=== PATIENT | male | born 1980 | race Caucasian/White ===

== ENCOUNTER 2024-09-29 11:17 | Inpatient (IN) | payer SELFPAY ==
[2024-09-29] VITALS (12 sets, daily range): BP systolic 117–150; BP diastolic 66–99; PULSE 56–93; RESP 12–18; TEMP 36.1–37.8; O2SAT 94–100; BMI 30.1; BMI 31.1
--- NOTE | 2024-09-29 | CYSPIN_PTH ---
PATIENT: АНДРЕЙ THOMPSON LOC: MS3 U#:[id number] AGE/SX: 44/M ROOM: MA311 RE09/29/[address]: Dr. Bib Varela DO : 1980 BED: 1 DIS: 10/01/2024 SPEC #: [id number] RECD: 09/30/24 09:35 STATUS: HOMER REUday #: [id number] ALBERTO: 09/29/24 00:[address]: Vishal Pascual DEPT: CYTOLOGY RECD BY: Oscar Guzmán ENTERED: 09/30/24 09:36 SP TYPE: CYSPIN FL OTHR DR: DO Dr. Bib Thomas DO Dr. Robert Leininger, MD No Primary Care Phys Tissues: A - Cerebrospinal Fluid Procedures: Pap Stain (control) Special Stain Group II Cytospin Fluid HEADER OPERATION: Not noted PRE-OP DIAGNOSIS: Meningitis, unspecified TISSUE SUBMITTED: A- Cerebrospinal fluid for cytology DIAGNOSIS CYTOLOGY A. Cerebrospinal fluid: * No malignant cells are identified CYTOLOGY STUDY Slides are reviewed. CYTOLOGY GROSS A. Received is 0.5 ml of clear-colorless fluid labeled with the patient's name and and designated per the requisition as Cerebrospinal fluid. Submitted for cytology and cell block preparation. Mr 09/30/2024 CPT: 24881
--- NOTE | 2024-09-29 13:41 | CT_ITS ---
PROCEDURE: BRAIN/HEAD WITHOUT CONTRAST 09/29/2024 REASON FOR EXAM: HEADACHE TECHNIQUE: Head CT without intravenous contrast. Coronal and Sagittal reconstruction series were provided. One or more dose reduction techniques were used (e.g., Automated exposure control, adjustment of the mA and/or kV according to patient size, use of iterative reconstruction technique. RADIATION DOSE SUMMARY: CTDlvol: 47.06 mGy DLP: 907.97 mGycm COMPARISON: None. FINDINGS: Brain: Within normal limits for age CSF Spaces: Normal Sinuses/Mastoids: Mild bilateral ethmoid sinus mucosal thickening is seen. Ksux-[id number] left maxillary sinus mucosal thickening is noted. No air-fluid level is seen. The remaining paranasal sinuses appear clear, as do the mastoid air cells. No orbital pathology is noted. Bones: No acute process is seen. CT/Brain/Head without Contrast IMPRESSION: 1. Chronic appearing paranasal sinus disease. 2. No significant intracranial pathology is evident. Reading Location: [place] [address]
--- NOTE | 2024-09-29 13:41 | RAD_ITS ---
PROCEDURE: CHEST 1 VIEW (PORTABLE) 09/29/2024 REASON FOR EXAM: COUGH AND FEVER TECHNIQUE: Frontal view of the chest. COMPARISON: None. RAD/Chest 1 View (Portable) IMPRESSION: Lungs are hypoinflated, but are likely clear of acute disease. No evidence of pulmonary edema. No pleural effusion or pneumothorax is noted. The cardiomediastinal silhouette is within the normal range. No acute osseous process is seen. Reading Location: [place] [id number]
--- NOTE | 2024-09-29 13:43 | EDS_ITS ---
HPI <Dr. Vishal Pascual DO - Last Filed: 09/29/24 13:57> History of Present Illness Chief Complaint: General Illness Informant: patient and spouse/S.O. Narrative Narrative: 44-year-old male presenting to the emergency room with chief complaint of headache. Patient states on Friday he had a gradual onset of headache described as behind his eyes and the temples in his occiput and also by his ears. He notes that also occurring Friday and Friday was nasal congestion and a slight cough. states that last night he had 103 fever and she gave Tylenol. It was 99 this morning. Friday he had a dental extraction on the right side. He was prescribed antibiotics but did not start taking them. He notes some light sensitivity. States his neck feels stiff. He is able to move his neck from [id number] and up and down. He denies any rashes. He did an episode of vomiting this morning. He notes that he is not treated for any medical problems. He takes no medicines regularly has no allergies. He does not typically get headaches. PFSH <Dr. Vishal Pascual DO - Last Filed: 09/29/24 13:57> [facility] Home Medications ?Medication ?Instructions ?Recorded ?Last Taken ?Type amoxicillin 875 mg tablet 875 mg PO Q12.TCU 09/29/24 U nknown History ibuprofen 800 mg tablet 800 mg PO Q6H PRN PRN pain 0 09/29/24 Unknown History Allergy/AdvReac Type Severity Reaction Status Date / Time No Known Allergies Allergy Verified 09/29/24 11:20 Surgical History H/O tooth extraction Social History Smoking Status: Never smoker ROS <Dr. Vishal Pascual DO - Last Filed: 09/29/24 13:57> ROS ED Constitutional Constitutional ED: Reports fever(s); Denies chills or weight loss Eyes Eyes: Denies change in vision or diplopia ENT ENT ED: Reports rhinorrhea; Denies ear pain or sore throat Cardiovascular Cardiovascular: Denies chest pain, orthopnea, palpitations or racing heartbeat Respiratory/Chest Respiratory/Chest: Reports cough; Denies dyspnea or orthopnea Gastrointestinal Gastrointestinal: Reports nausea and vomiting; Denies abdominal pain or diarrhea Genitourinary Genitourinary ED: Denies dysuria, hematuria or urinary frequency Musculoskeletal Musculoskeletal: Reports neck pain; Denies arthralgias or myalgias Integumentary Denies abscess or rash Neurologic Neurologic: Reports headache(s); Denies paresthesias or weakness Psychiatric Psychiatric: Denies anxiety, depression, suicidal ideation or suicidal thoughts Endocrine Endocrinology: Denies polydipsia, polyphagia or polyuria Allergic/Immunologic Allergic/Immunologic ED: Denies mouth swelling, tongue swelling or urticaria EXAM <Dr. Vishal Pascual, DO - Last Filed: 09/29/24 13:57> Physical Exam Narrative Exam Narrative: Patient lying in a darkened room. He appears uncomfortable shifting his weight and moving his head from [id number] occasionally extending backwards and forwards. Const Vital Signs: 09/29/24 11:18 09/29/24 11:20 09/29/24 12:32 Temperature 97.6 F L 97.6 F L 98 F Temperature Source Oral Temporal Oral Pulse Rate 89 89 78 Respiratory Rate 16 16 15 Respiratory Effort Respiratory Pattern Blood Pressure 149/90 H 149/90 H 124/70 H Blood Pressure Mean 109 109 88 Pulse Ox 100 100 97 Oxygen Delivery Method Room Air Room Air Room Air 09/29/24 12:32 09/29/24 13:20 09/29/24 15:00 Temperature Temperature Source Pulse Rate 74 73 Respiratory Rate 16 16 Respiratory Effort Normal Respiratory Pattern Normal Blood Pressure 138/86 H 132/75 H Blood Pressure Mean 103 94 Pulse Ox 97 96 Oxygen Delivery Method Room Air Room Air 09/29/24 15:53 09/29/24 16:24 09/29/24 18:00 Temperature 99.9 F H Temperature Source Axillary Pulse Rate 71 65 56 L Respiratory Rate 13 12 14 Respiratory Effort Respiratory Pattern Blood Pressure 127/68 H 117/66 136/85 H Blood Pressure Mean 87 83 102 Pulse Ox 95 95 99 Oxygen Delivery Method Room Air Room Air Room Air 09/29/24 19:39 Temperature 100.1 F H Temperature Source Pulse Rate 69 Respiratory Rate 16 Respiratory Effort Respiratory Pattern Blood Pressure 137/81 H Blood Pressure Mean 99 Pulse Ox 99 Oxygen Delivery Method Positive well nourished and well developed General Appearance ED: well developed and NAD HEENT Reports normocephalic, head/scalp atraumatic and moist mucous membranes HEENT Narrative: Dental extraction site does not demonstrate a dry socket. There is no trismus. No significant gumline swelling. Eyes PERRL and EOMs intact bilaterally Neck supple and no JVD Neck Narrative: There are numerous anterior change lymph nodes that are less than 1 cm and mobile. I would not characterize his neck as rigid or meningitic though he does note discomfort with range of motion. Resp normal respiratory effort and clear to auscultation bilaterally Cardio regular rate, regular rhythm and no murmurs GI normal to inspection, nondistended, normoactive bowel sounds and non-tender Palpation: soft Back/Spine no CVA tenderness and normal ROM Extremity normal to inspection General Extremety ED: Negative for edema General Extremity: Negative for edema Neuro oriented x3 and CN's II-XII intact bilaterally Sensorium / Orientation: alert Motor Exam: strength 5/5 throughout Psych mental status grossly normal Mood & Affect: Negative for depressed or tearful Skin no rashes or lesions noted and no wounds <Dr. Jeff Zepeda, DO - Last Filed: 09/29/24 19:49> Physical Exam Const Vital Signs: 09/29/24 11:18 09/29/24 11:20 09/29/24 12:32 Temperature 97.6 F L 97.6 F L 98 F Temperature Source Oral Temporal Oral Pulse Rate 89 89 78 Respiratory Rate 16 16 15 Respiratory Effort Respiratory Pattern Blood Pressure 149/90 H 149/90 H 124/70 H Blood Pressure Mean 109 109 88 Pulse Ox 100 100 97 Oxygen Delivery Method Room Air Room Air Room Air 09/29/24 12:32 09/29/24 13:20 09/29/24 15:00 Temperature Temperature Source Pulse Rate 74 73 Respiratory Rate 16 16 Respiratory Effort Normal Respiratory Pattern Normal Blood Pressure 138/86 H 132/75 H Blood Pressure Mean 103 94 Pulse Ox 97 96 Oxygen Delivery Method Room Air Room Air 09/29/24 15:53 09/29/24 16:24 09/29/24 18:00 Temperature 99.9 F H Temperature Source Axillary Pulse Rate 71 65 56 L Respiratory Rate 13 12 14 Respiratory Effort Respiratory Pattern Blood Pressure 127/68 H 117/66 136/85 H Blood Pressure Mean 87 83 102 Pulse Ox 95 95 99 Oxygen Delivery Method Room Air Room Air Room Air 09/29/24 19:39 Temperature 100.1 F H Temperature Source Pulse Rate 69 Respiratory Rate 16 Respiratory Effort Respiratory Pattern Blood Pressure 137/81 H Blood Pressure Mean 99 Pulse Ox 99 Oxygen Delivery Method [facility] <Dr. Vishal Pascual, DO - Last Filed: 09/29/24 13:57> [facility] Lab Data Labs: Laboratory Results - last 24 hr 09/29/24 09/29/24 13:58 16:15 WBC 8.5 RBC 4.53 L Hgb 13.6 Hct 39.0 L MCV 86.1 MCH 30.0 MCHC 34.9 RDW Std Deviation 37.1 RDW Coeff of Alonso 11.8 Plt Count 253 MPV 9.8 Immature Gran % (Auto) 0.400 Neut % (Auto) 73.7 H Lymph % (Auto) 14.4 L Bailey % (Auto) 10.9 H Eos % (Auto) 0.1 Baso % (Auto) 0.5 Absolute Neuts (auto) 6.2 Absolute Lymphs (auto) 1.22 Nucleated RBC % 0 PT 13.3 INR 1.0 APTT 27.3 Sodium 134 Potassium 3.9 Chloride 100 Carbon Dioxide 23.0 Anion Gap 11 BUN 9 Creatinine 1.01 Estim Creat Clear Calc 120.46 Est GFR (MDRD) Non-Af 95 BUN/Creatinine Ratio 8.8 L Glucose 98 Lactic Acid < 1.0 Calcium 9.4 Total Bilirubin 0.67 Direct Bilirubin 0.24 AST 23 ALT 13 Alkaline Phosphatase 81 Total Protein 8.0 Albumin 4.0 Globulin 3.9 CSF Appearance CLEAR CSF Color COLORLESS CSF WBC 55 H CSF RBC 73 H CSF Cell Count Tube # 1 CSF Total Cell Counted 0.092 CSF Neutrophils 61 H CSF Lymphocytes 37 L CSF Monocytes 2 L CSF Eosinophils 0 CSF Other Cells 0 CSF Comment May follow CSF Glucose 55 CSF Total Protein 116.0 H
--- NOTE | 2024-09-29 13:43 | EX.ED.DYSGE1 ---
HPI <Dr. Vishal Pascual DO - Last Filed: 09/30/24 14:57> History of Present Illness Chief Complaint: General Illness Informant: patient and spouse/S.O. Narrative Narrative: 44-year-old male presenting to the emergency room with chief complaint of headache. Patient states on Friday he had a gradual onset of headache described as behind his eyes and the temples in his occiput and also by his ears. He notes that also occurring Friday and Friday was nasal congestion and a slight cough. states that last night he had 103 fever and she gave Tylenol. It was 99 this morning. Friday he had a dental extraction on the right side. He was prescribed antibiotics but did not start taking them. He notes some light sensitivity. States his neck feels stiff. He is able to move his neck from [id number] and up and down. He denies any rashes. He did an episode of vomiting this morning. He notes that he is not treated for any medical problems. He takes no medicines regularly has no allergies. He does not typically get headaches. PFSH <Dr. Vishal Pascual DO - Last Filed: 09/30/24 14:57> [facility] Home Medications ?Medication ?Instructions ?Recorded ?Last Taken ?Type amoxicillin 875 mg tablet 875 mg PO Q12.TCU atb 09/29/24 Unknown History ibuprofen 800 mg tablet 800 mg PO Q6H PRN PRN pain 09/29/24 Unknown History Allergy/AdvReac Type Severity Reaction Status Date / Time No Known Allergies Allergy Verified 09/29/24 11:20 Surgical History H/O tooth extraction Social History Smoking Status: Never smoker ROS <Dr. Vishal Pascual DO - Last Filed: 09/30/24 14:57> ROS ED Constitutional Constitutional ED: Reports fever(s); Denies chills or weight loss Eyes Eyes: Denies change in vision or diplopia ENT ENT ED: Reports rhinorrhea; Denies ear pain or sore throat Cardiovascular Cardiovascular: Denies chest pain, orthopnea, palpitations or racing heartbeat Respiratory/Chest Respiratory/Chest: Reports cough; Denies dyspnea or orthopnea Gastrointestinal Gastrointestinal: Reports nausea and vomiting; Denies abdominal pain or diarrhea Genitourinary Genitourinary ED: Denies dysuria, hematuria or urinary frequency Musculoskeletal Musculoskeletal: Reports neck pain; Denies arthralgias or myalgias Integumentary Denies abscess or rash Neurologic Neurologic: Reports headache(s); Denies paresthesias or weakness Psychiatric Psychiatric: Denies anxiety, depression, suicidal ideation or suicidal thoughts Endocrine Endocrinology: Denies polydipsia, polyphagia or polyuria Allergic/Immunologic Allergic/Immunologic ED: Denies mouth swelling, tongue swelling or urticaria EXAM <Dr. Vishal Pascual, DO - Last Filed: 09/30/24 14:57> Physical Exam Narrative Exam Narrative: Patient lying in a darkened room. He appears uncomfortable shifting his weight and moving his head from [id number]-fi-kutu occasionally extending backwards and forwards. Const Vital Signs: 09/29/24 15:00 09/29/24 15:53 09/29/24 16:24 Temperature Temperature Source Pulse Rate 73 71 65 Respiratory Rate 16 13 12 Blood Pressure 132/75 H 127/68 H 117/66 Blood Pressure Mean 94 87 83 Pulse Ox 96 95 95 Oxygen Delivery Method Room Air Room Air Room Air 09/29/24 18:00 09/29/24 19:39 09/29/24 20:00 Temperature 99.9 F H 100.1 F H Temperature Source Axillary Pulse Rate 56 L 69 93 Respiratory Rate 14 16 16 Blood Pressure 136/85 H 137/81 H 146/99 H Blood Pressure Mean 102 99 114 Pulse Ox 99 99 94 Oxygen Delivery Method Room Air Room Air Positive well nourished and well developed General Appearance ED: well developed and NAD HEENT Reports normocephalic, head/scalp atraumatic and moist mucous membranes HEENT Narrative: Dental extraction site does not demonstrate a dry socket. There is no trismus. No significant gumline swelling. Eyes PERRL and EOMs intact bilaterally Neck supple and no JVD Neck Narrative: There are numerous anterior change lymph nodes that are less than 1 cm and mobile. I would not characterize his neck as rigid or meningitic though he does note discomfort with range of motion. Resp normal respiratory effort and clear to auscultation bilaterally Cardio regular rate, regular rhythm and no murmurs GI normal to inspection, nondistended, normoactive bowel sounds and non-tender Palpation: soft Back/Spine no CVA tenderness and normal ROM Extremity normal to inspection General Extremety ED: Negative for edema General Extremity: Negative for edema Neuro oriented x3 and CN's II-XII intact bilaterally Sensorium / Orientation: alert Motor Exam: strength 5/5 throughout Psych mental status grossly normal Mood & Affect: Negative for depressed or tearful Skin no rashes or lesions noted and no wounds <Dr. Jeff Zepeda, DO - Last Filed: 09/29/24 19:49> Physical Exam Const Vital Signs: 09/29/24 15:00 09/29/24 15:53 09/29/24 16:24 Temperature Temperature Source Pulse Rate 73 71 65 Respiratory Rate 16 13 12 Blood Pressure 132/75 H 127/68 H 117/66 Blood Pressure Mean 94 87 83 Pulse Ox 96 95 95 Oxygen Delivery Method Room Air Room Air Room Air 09/29/24 18:00 09/29/24 19:39 09/29/24 20:00 Temperature 99.9 F H 100.1 F H Temperature Source Axillary Pulse Rate 56 L 69 93 Respiratory Rate 14 16 16 Blood Pressure 136/85 H 137/81 H 146/99 H Blood Pressure Mean 102 99 114 Pulse Ox 99 99 94 Oxygen Delivery Method Room Air Room Air MDM <Dr. Vishal Pascual, DO - Last Filed: 09/30/24 14:57> [facility] Narrative Medical decision making narrative: Differential diagnosis includes viral syndrome bacterial viral fungal meningitis malignancy intracranial hemorrhage primary headache dehydration. CT brain was obtained and is negative for acute. White count is normal. Lactic acid is normal. BMP liver enzymes within normal limits. COVID influenza and RSV swabs are negative. My independent interpretation of the chest x-ray is no acute process. Patient received IV fluids as well as Toradol. After the above workup the patient received Dilaudid with some improvement of headache. I spoke with the patient and his regarding the above findings and my concerns for meningitis. He has not had any recent insect bites or rashes. Patient provided informed written consent for lumbar puncture. Patient placed in the left lateral position. L5 interspace was identified washed with Betadine and allowed to dry. Sterile prep. Local 1% lidocaine used to anesthetize the area. I then advanced through the needle between the spinous processes. Once I felt a pop remove the stylette and cut a small amount of blood. Attempted to advance. This attempt was aborted in the needle was removed. I asked my associate Dr. Rivas to assist. We agreed to utilize the L4-L5 interspace. He was successful in the first attempt with a 22-gauge needle using the above technique. Opening pressure obtained fluid collected about 7 cc of clear spinal fluid obtained. These will be sent for analysis. At this point care the patient be turned over to the oncoming physician for check of CSF analysis and final disposition. Care of patient turned over to me awaiting results of spinal fluid. He was noted to have 55 WBCs with 61% neutrophils. Protein was high and glucose was normal. Gram stain was negative for organisms. Reevaluated the patient and he is continuing to feel significant headache. I did start patient on Rocephin 2 g IV as well as acyclovir. Will have to await results of culture and viral panels. Some concern for bacterial meningitis based on CSF findings but more likely I suspect this is viral. After discussing case with hospitalist I was asked to touch base with infectious disease Dr. Nuno who did not feel patient required steroids. Based on findings suspect likely viral etiology. History & Record Review Discussion w/independent historian: Patient and Significant other Lab Data Labs: Laboratory Results - last 24 hr 09/29/24 09/29/24 13:58 16:15 Magnesium 2.0 TSH 0.489 CSF Appearance CLEAR CSF Color COLORLESS CSF WBC 55 H CSF RBC 73 H CSF Cell Count Tube # 1 CSF Total Cell Counted 0.092 CSF Neutrophils 61 H CSF Lymphocytes 37 L CSF Monocytes 2 L CSF Eosinophils 0 CSF Other Cells 0 CSF Comment May follow CSF Glucose 55 CSF Total Protein 116.0 H Radiography Diagnostic Testing: Clinical Impression(s) from Imaging Studies Brain CT 09/29/24 13:41 IMPRESSION: 1. Chronic appearing paranasal sinus disease. 2. No significant intracranial pathology is evident. Reading Location: [place] [address] Chest X-Ray 09/29/24 13:41 IMPRESSION: Lungs are hypoinflated, but are likely clear of acute disease. No evidence of pulmonary edema. No pleural effusion or pneumothorax is noted. The cardiomediastinal silhouette is within the normal range. No acute osseous process is seen. Reading Location: [place] [address] Management Discussion w/another healthcare provider: Hospitalist and Database Technician <Dr. Jeff Zepeda, DO - Last Filed: 09/29/24 19:49> [facility] MDM Narrative Medical decision making narrative: Care of patient turned over to me awaiting results of spinal fluid. He was noted to have 55 WBCs with 61% neutrophils. Protein was high and glucose was normal. Gram stain was negative for organisms. Reevaluated the patient and he is continuing to feel significant headache. I did start patient on Rocephin 2 g IV as well as acyclovir. Will have to await results of culture and viral panels. Some concern for bacterial meningitis based on CSF findings but more likely I suspect this is viral. After discussing case with hospitalist I was asked to touch base with infectious disease Dr. Nuno who did not feel patient required steroids. Based on findings suspect likely viral etiology. Lab Data Attestation: I reviewed the patient's lab results. Labs: Laboratory Results - last 24 hr 09/29/24 09/29/24 13:58 16:15 Magnesium 2.0 TSH 0.489 CSF Appearance CLEAR CSF Color COLORLESS CSF WBC 55 H CSF RBC 73 H CSF Cell Count Tube # 1 CSF Total Cell Counted 0.092 CSF Neutrophils 61 H CSF Lymphocytes 37 L CSF Monocytes 2 L CSF Eosinophils 0 CSF Other Cells 0 CSF Comment May follow CSF Glucose 55 CSF Total Protein 116.0 H Radiography Diagnostic Testing: Clinical Impression(s) from Imaging Studies Brain CT 09/29/24 13:41 IMPRESSION: 1. Chronic appearing paranasal sinus disease. 2. No significant intracranial pathology is evident. Reading Location: [place] [address] Chest X-Ray 09/29/24 13:41 IMPRESSION: Lungs are hypoinflated, but are likely clear of acute disease. No evidence of pulmonary edema. No pleural effusion or pneumothorax is noted. The cardiomediastinal silhouette is within the normal range. No acute osseous process is seen. Reading Location: [place] [address] Procedures <Dr. Vishal Pascual, DO - Last Filed: 09/30/24 14:57> Lumbar Puncture Consent/Risks: Consent for procedure obtained and Risks/Benefits/Alternatives Discussed Lumbar Puncture Description: Left, Lateral, Sterile Prep, Betadine Prep, Sterile Technique and L4-5 Spinal Needle: 22G Sedation: None Opening Pressure: 30 Fluid Color: Clear Discharge Plan Dx/Rx/DC Orders Clinical Impression: Meningitis Disposition Disposition: Acute Care Hospital [facility] Discharge Date/Time: 09/29/24 20:44
[2024-09-29] MEDS: 0.9% Normal Saline (1000mL) 1,000 ML 1000 ML IV (14:04)
[2024-09-29] MEDS: Ketorolac 30 MG/ML Syringe IV (14:05)
[2024-09-29] MEDS: Ondansetron 4 MG/2 ML Vial IV ×3 (14:05→22:06)
[2024-09-29 14:17] LABS: Absolute Lymphocyte Count 1.22 X10^3/uL (0.83-4.51); Absolute Neutrophil Count 6.2 X10^3/uL (2.0-7.7); Basophil# 0.04 X10^3/uL; Basophil% 0.5 % (0-1); Eosinophil# 0.01 X10^3/uL; Eosinophils% 0.1 % (0-5); Hemoglobin 13.6 g/dL (13.0-16.5); Lymphocyte # 1.22 X10^3/ul (0.83-4.51); Lymphocyte % 14.4 % (19-41); Mean Corp Hgb Conc 34.9 g/dL (32-36); Mean Corpuscular Volume 86.1 fL (80-94); Mean Platelet Vol. 9.8 fl (6.2-12.0); Monocyte# 0.92 X10^3/uL; Monocyte% 10.9 % (0-10); NRBC Flagged by Analyzer 0 % (0-5); Neutrophil # 6.24 X10^3/uL (2.7-7.7); Neutrophil % 73.7 % (47-70); Platelet Count 253 K/mm3 (150-450); RBC Distribution Width CV 11.8 % (11.6-14.6); RBC Distribution Width SD 37.1 fl (35.1-43.9); Red Blood Count 4.53 M/mm3 (4.6-6.2); White Blood Count 8.5 K/mm3 (4.4-11.0)
[2024-09-29 14:22] LABS: Prothrombin Time (Protime)PT. 13.3 SECONDS (11.7-14.9)
[2024-09-29 14:23] LABS: Partial Thromboplast Time 27.3 Seconds (24.1-36.2)
[2024-09-29] MEDS: 0.9% Normal Saline (1000mL) 1,000 ML 250 ML IV ×2 (14:29→19:04)
[2024-09-29 14:41] LABS: AST(SGOT) 23 U/L (<=37); Alanine Aminotransfer ALT/SGPT 13 U/L (<=46); Alkaline Phosphatase 81 U/L (40-129); Anion Gap 11 (5-15); BUN 9 mg/dL (4-19); BUN/Creat Ratio 8.8 RATIO (10-20); Bilirubin, Direct 0.24 mg/dL (0.00-0.30); Calcium,Total 9.4 mg/dL (7.6-11.0); Chloride 100 mmol/L (98-108); Creatinine, Serum 1.01 mg/dL (0.70-1.20); EST Glomerular Filtration Rate 95 (>60); Estimated Creatinine Clearance 120.46 ml/min (50-250); Globulin 3.9 g/dL (2.2-4.2); Glucose 98 mg/dL (70-99); Potassium 3.9 mmol/L (3.3-5.1); Sodium Level 134 mmol/L (133-145); Total Bilirubin 0.67 mg/dL (0.00-1.30)
[2024-09-29 14:52] LABS: Lactic Acid < 1.0 mmol/L (0.0-2.0)
[2024-09-29] MEDS: HYDROmorphone 1 MG/ML Syringe IV (15:29)
[2024-09-29] MEDS: Lidocaine 1% (20 ml mdv) 20 ML Vial 10 ML INFILT (16:27)
[2024-09-29 16:28] LABS: Cytology, Body Fluid / CSF SEE PATHOLOGY REPORT; Pathologist Review May follow
[2024-09-29 17:12] LABS: Glucose Spinal Fluid 55 mg/dL (40-75)
[2024-09-29 19:03] LABS: Appearance CSF (character) CLEAR (Clear); CSF Color COLORLESS (Colorless)
[2024-09-29 19:04] LABS: RBC Count, Spinal Fluid 73 /mm-3 (None seen); White Count, CSF 55 /mm-3 (0 - 5)
[2024-09-29 19:05] LABS: Total Cell Count CSF 0.092 10^3/uL
[2024-09-29 19:06] LABS: Tested Tube # 1
[2024-09-29 19:19] LABS: Eosinophils,CSF 0 % (None seen); Lymphocytes,CSF 37 % (40 - 80); Monocytes,CSF 2 % (15 - 45); Neutrophils,CSF 61 % (0 - 6); Other Cells,CSF 0 %
[2024-09-29 19:20] LABS: Auto B Fluid Analyzer BKGD Ct COUNTS W/IN LIMITS (W/IN LIMITS); Body Fluid QC Type(s) 0507:BF1Q
--- NOTE | 2024-09-29 19:38 | PCM.HP.STD ---
[facility] - General General Date of Admission: 09/29/24 Date of Service: 09/29/24 Chief Complaint: Headache and Fever. HPI Narrative АНДРЕЙ DAVISON, is a 44 M with a past medical history of obesity; with BMI of 30.1 this admission and recent Right dental extraction on Tuesday, September 24, 2024; for which he was prescribed antibiotics with amoxicillin (but he did not take them) who presents to [facility] ER complaining of headache and fever. Mr. Davison reports his symptoms began ~3 days ago on Friday, September 25, 2024 with the gradual-onset of headache that felt like it was emanating from behind his eyes and was radiating into his temples, ears and occiput. Then on Friday, September 26, 2024 he developed nasal congestion with a slight nonproductive cough. Then last night his symptoms acutely worsened when he spiked a temperature to 103 degrees Fahrenheit for which he gave him acetaminophen with some temporary relief. He also admits to light-sensitivity with neck stiffness followed by nausea with an episode of bilious emesis. He denies a history of headaches and he is not on treatment for any chronic medical problems. There was no report of changes in vision, sore throat, chest pain, palpitations, heart racing, SOB, abdominal pain, diarrhea, constipation or rash. In the ER his brain CT revealed chronic paranasal sinus disease and he then underwent spinal tap suggestive of Meningitis with final results pending at this time so he was empirically started on IV ceftriaxone and IV acyclovir with ER physician asked to speak to ID physician for further guidance and he was then admitted to the general medical floor under contact and droplet precautions for a stay that is expected to extend beyond 2 midnights. [facility] Home Medications ?Medication ?Instructions ?Recorded ?Last Taken ?Type amoxicillin 875 mg tablet 875 mg PO Q12.TCU atb 09/29/24 Unknown History ibuprofen 800 mg tablet 800 mg PO Q6H PRN PRN pain 09/29/24 Unknown History Allergy/AdvReac Type Severity Reaction Status Date / Time No Known Allergies Allergy Verified 09/29/24 11:20 Surgical History H/O tooth extraction Social History Smoking Status: Never smoker ROS ROS Narrative Review of Systems: Constitutional: Patient admits to fever and neck stiffness. Eyes: Patient states he feels like his headache is coming from behind his eyes but he denies changes in vision. ENT: Patient admits to runny nose but he denies sore throat. Resp: Patient admits to nonproductive cough but he denies SOB. CV: Patient denies chest pain, palpitations, heart racing or LE edema. GI: Patient admits to nausea and vomiting with bilious emesis but he denies abdominal pain, diarrhea or constipation. : Patient denies dysuria, hematuria or urinary frequency. MSK: Patient admits to neck stiffness but he denies arthralgias or myalgias. Skin: Patient denies rash, abscess, wounds or jaundice. Psych: Patient denies symptoms of uncontrolled depression or anxiety. Neuro: Patient admits to headache for the past ~3 days as per HPI. He denies paresthesias or focal neurologic deficits. Allergy: Patient denies lip swelling, tongue swelling or urticaria. Hematology: Patient denies easy bleeding or easy bruisability. Endocrinology: Patient denies polyuria, polydipsia, polyphagia or heat/cold intolerance. 14 point ROS otherwise negative except for positives noted above in HPI. Vital Signs Vital Signs Vital Signs: 09/29/24 11:18 09/29/24 11:20 09/29/24 12:32 Temperature 97.6 F L 97.6 F L 98 F Temperature Source Oral Temporal Oral Pulse Rate 89 89 78 Respiratory Rate 16 16 15 Respiratory Effort Respiratory Pattern Blood Pressure 149/90 H 149/90 H 124/70 H Blood Pressure Mean 109 109 88 Pulse Ox 100 100 97 Oxygen Delivery Method Room Air Room Air Room Air 09/29/24 12:32 09/29/24 13:20 09/29/24 15:00 Temperature Temperature Source Pulse Rate 74 73 Respiratory Rate 16 16 Respiratory Effort Normal Respiratory Pattern Normal Blood Pressure 138/86 H 132/75 H Blood Pressure Mean 103 94 Pulse Ox 97 96 Oxygen Delivery Method Room Air Room Air 09/29/24 15:53 09/29/24 16:24 09/29/24 18:00 Temperature 99.9 F H Temperature Source Axillary Pulse Rate 71 65 56 L Respiratory Rate 13 12 14 Respiratory Effort Respiratory Pattern Blood Pressure 127/68 H 117/66 136/85 H Blood Pressure Mean 87 83 102 Pulse Ox 95 95 99 Oxygen Delivery Method Room Air Room Air Room Air Weight Weight: 228 lb 7 oz Body Mass Index (BMI) 30.1 Results Medical Records Data Attestation: I reviewed the patient's medical records Lab / Micro Data Attestation: I reviewed the patient's lab results. 09/29/24 13:58 09/29/24 13:58 Labs: Laboratory Results - last 24 hr 09/29/24 13:58: WBC 8.5, RBC 4.53 L, Hgb 13.6, Hct 39.0 L, MCV 86.1, MCH 30.0, MCHC 34.9, RDW Std Deviation 37.1, RDW Coeff of Alonso 11.8, Plt Count 253, MPV 9.8, Immature Gran % (Auto) 0.400, Neut % (Auto) 73.7 H, Lymph % (Auto) 14.4 L, [place] % (Auto) 10.9 H, Eos % (Auto) 0.1, Baso % (Auto) 0.5, Absolute Neuts (auto) 6.2, Absolute Lymphs (auto) 1.22, Nucleated RBC % 0, PT 13.3, INR 1.0, APTT 27.3, Sodium 134, Potassium 3.9, Chloride 100, Carbon Dioxide 23.0, Anion Gap 11, BUN 9, Creatinine 1.01, Estim Creat Clear Calc 120.46, Est GFR (MDRD) Non-Af 95, BUN/Creatinine Ratio 8.8 L, Glucose 98, Lactic Acid < 1.0, Calcium 9.4, Total Bilirubin 0.67, Direct Bilirubin 0.24, AST 23, ALT 13, Alkaline Phosphatase 81, Total Protein 8.0, Albumin 4.0, Globulin 3.9 09/29/24 16:15: CSF Appearance CLEAR, CSF Color COLORLESS, CSF WBC 55 H, CSF RBC 73 H, CSF Cell Count Tube # 1, CSF Total Cell Counted 0.092, CSF Neutrophils 61 H, CSF Lymphocytes 37 L, CSF Monocytes 2 L, CSF Eosinophils 0, CSF Other Cells 0, CSF Comment May follow, CSF Glucose 55, CSF Total Protein 116.0 H Micro: Microbiology 09/29/24 16:15 Csf, Spinal Fluid Gram Stain - Preliminary 09/29/24 13:58 Mucosa - Nose SARS-CoV-2, Influenza & RSV (PCR) - Final Imaging Radiology Impression Brain CT 09/29/24 13:41 IMPRESSION: 1. Chronic appearing paranasal sinus disease. 2. No significant intracranial pathology is evident. Reading Location: [place] [id number] Chest X-Ray 09/29/24 13:41 IMPRESSION: Lungs are hypoinflated, but are likely clear of acute disease. No evidence of pulmonary edema. No pleural effusion or pneumothorax is noted. The cardiomediastinal silhouette is within the normal range. No acute osseous process is seen. Reading Location: [place] [id number] Assessment & Plan Assessment/Plan (1) Meningitis: (2) Nausea and vomiting: QUALIFIERS: Vomiting type: bilious vomiting Qualified Code(s): R11.14 - Bilious vomiting (3) Headache: QUALIFIERS: Headache chronicity pattern: acute headache Headache type: unspecified Intractability: intractable Qualified Code(s): R51.9 - Headache, unspecified (4) Fever: QUALIFIERS: Fever type: unspecified Qualified Code(s): R50.9 - Fever, unspecified (5) Sinus infection: QUALIFIERS: Chronicity: chronic Sinusitis location: unspecified location Qualified Code(s): J32.9 - Chronic sinusitis, unspecified (6) Obesity (BMI 30.0-34.9): PLAN: Plan 1. Meningitis; with persistent Fever and Headache - Admit to general medical floor under contact and droplet precautions. Await spinal fluid analysis and culture/sensitivity data. Continue empiric IV ceftriaxone and IV acyclovir plus add IV vancomycin. Give acetaminophen prn for [id number] (level 1-5/10) pain or fever. Give morphine IV prn for severe (level 6-10/10) pain. Finally, we will consult Dr. Nuno of [place] to see this patient on rounds in the AM for further recommendations with help appreciated in advance. 2. Nausea and Vomiting with bilious emesis due to #1 - Give ondansetron IV prn nausea and vomiting. Give promethazine IM prn for breakthrough nausea. 3. Brain CT revealed chronic paranasal sinus disease complicating #1 & #2 - Patient started on antibiotics for #1. We will also treat with Afrin NS and decongestants prn. 4. Recent Right dental extraction on Tuesday, September 24, 2024; for which he was prescribed antibiotics with amoxicillin (but he did not take them) likely triggering #1 - Noted. Patient will be encouraged to take his antibiotics as prescribed in the future. 4. Obesity; with BMI of 30.1 this admission adding to the burden of disease outlined from #1 - #3 - Weight loss will be recommended. Check TSH. This complicates his case and may hamper recovery. 5. DVT prophylaxis - Enoxaparin 40 mg sq daily plus SCD's. Total time: Approximately (but not less than) 75 minutes. Charges/Coding Visit Charges Inpatient E&M: 69823 Init Hosp L3
[2024-09-29] MEDS: Ceftriaxone 2 GM in 0.9% Normal Saline (50mL MB+) 50 ML IV (19:54)
[2024-09-29] MEDS: Acetaminophen 500 MG Tablet 1000 MG PO (19:59)
[2024-09-29 21:07] LABS: Thyroid Stim Hormone (TSH) 0.489 uIU/mL (0.300-4.200)
[2024-09-29 21:08] LABS: Red Blood Cells-Urine 0 SEEN /hpf (0-5); Squamous Epithelial Cells - UA 0 SEEN /hpf (0-5)
[2024-09-29 21:10] LABS: Color, Urine Yellow (Yellow); Glucose, Dipstick Normal (Normal); Leukocyte Esterase-Dipstick Negative /ul (Negative); Nitrite-Dipstick Negative (Negative); Occult Blood-Urine Negative /ul (Negative); Protein-Dipstick 15 mg/dl (Negative); Urine Bilirubin Dipstick Negative (Negative); Urine Clarity Clear (Clear); Urine Urobilinogen Normal (Normal)
[2024-09-29 21:12] LABS: Ketone-Dipstick 150 mg/dl (Negative)
[2024-09-29] MEDS: Acyclovir 800 MG in Dextrose 5%-Water (250mL Bag) 250 ML 266 MG IV (21:16)
[2024-09-29 21:22] LABS: Bacteria 1+ /hpf (None Seen); Mucous, Urine 2+ /hpf (<or=2+); White Blood Cells 0-5 SEEN /hpf (0-5)
[2024-09-29] MEDS: MELATONIN 3 MG TABLET PO (22:05)
[2024-09-29] MEDS: Vancomycin HCl 2,000 MG in 0.9% Normal Saline (500mL Bag) 500 ML 250 MG IV (22:05)
[2024-09-29] MEDS: guaiFENesin Dm 10 ML UDC 5 ML PO (22:06)
[2024-09-29] MEDS: 0.9% Normal Saline (1000mL) 1,000 ML 150 ML IV (22:06)
[2024-09-29] MEDS: Morphine 2 MG/ML Syringe IV (22:07)
[2024-09-29] MEDS: 0.9% Saline Lock 10 ML Syringe IV (22:17)
--- NOTE | 2024-09-29 23:31 | PCM.RX.CS ---
Consult Antibiotic Management Pharmacy has been consulted to manage selected antibiotic: Vancomycin Type of Intervention Type of Consult: New start Suspected Infection Suspected Infection: Meningitis Labs Labs: Sodium 134 mmol/L (133-145) 09/29/24 13:58 Potassium 3.9 mmol/L (3.3-5.1) 09/29/24 13:58 Chloride 100 mmol/L (98-108) 09/29/24 13:58 Carbon Dioxide 23.0 mmol/L (21.0-32.0) 09/29/24 13:58 Anion Gap 11 (5-15) 09/29/24 13:58 BUN 9 mg/dL (4-19) 09/29/24 13:58 Creatinine 1.01 mg/dL (0.70-1.20) 09/29/24 13:58 Est GFR (MDRD) Non-Af 95 (>60) 09/29/24 13:58 BUN/Creatinine Ratio 8.8 RATIO (10-20) L 09/29/24 13:58 Glucose 98 mg/dL (70-99) 09/29/24 13:58 Microbiology Microbiology: Microbiology 09/29/24 16:15 Csf, Spinal Fluid Gram Stain - Preliminary 09/29/24 13:58 Mucosa - Nose SARS-CoV-2, Influenza & RSV (PCR) - Final Dosing Weight Weight used for dosin kg Estimated Creatinine Clearance Estimated Creatinine Clearance: 120 Goal Trough Goal Trough: 15-20 mcg/mL Pharmacy Plan for Drug Dosing Pharmacy Plan for Drug Dosing: Pharmacy Service will continue to monitor and adjust dosing as required. Follow-Up Labs Follow-Up Labs: Trough: Vancomycin Date/Time Labs Ordered Labs to be done on [date and time ordered]: 09/30/24 @3696
[2024-09-30 03:08] VITALS: BP 139/81; PULSE 78; RESP 18; TEMP 36.8; O2SAT 95
[2024-09-30] MEDS: Acetaminophen 325 MG Tablet 650 MG PO ×3 (03:16→17:07)
[2024-09-30] MEDS: Morphine 2 MG/ML Syringe IV ×2 (03:21→14:55)
[2024-09-30] MEDS: Acyclovir 800 MG in Dextrose 5%-Water (250mL Bag) 250 ML 266 MG IV ×3 (06:11→22:17)
[2024-09-30] MEDS: Vancomycin HCl 1,250 MG in 0.9% Normal Saline (250mL Bag) 250 ML 167 MG IV (06:11)
[2024-09-30 07:01] LABS: Absolute Lymphocyte Count 1.48 X10^3/uL (0.83-4.51); Absolute Neutrophil Count 4.7 X10^3/uL (2.0-7.7); Basophil# 0.03 X10^3/uL; Basophil% 0.4 % (0-1); Eosinophil# 0.03 X10^3/uL; Eosinophils% 0.4 % (0-5); Hematocrit 33.7 % (40-54); Hemoglobin 11.9 g/dL (13.0-16.5); Lymphocyte # 1.48 X10^3/ul (0.83-4.51); Lymphocyte % 21.1 % (19-41); Mean Corp Hgb Conc 35.3 g/dL (32-36); Mean Corpuscular Hgb 30.7 pg (27.0-32.0); Mean Corpuscular Volume 86.9 fL (80-94); Mean Platelet Vol. 10.9 fl (6.2-12.0); Monocyte% 11.4 % (0-10); NRBC Flagged by Analyzer 0 % (0-5); Neutrophil # 4.65 X10^3/uL (2.7-7.7); Neutrophil % 66.4 % (47-70); Platelet Count 212 K/mm3 (150-450); RBC Distribution Width CV 11.8 % (11.6-14.6); RBC Distribution Width SD 37.3 fl (35.1-43.9); Red Blood Count 3.88 M/mm3 (4.6-6.2)
--- NOTE | 2024-09-30 07:41 | PN.HOSP_ITS ---
Reason for Visit Reason for Visit: Diagnoses Obesity, class 1 (09/29/24) Meningitis, unspecified (09/29/24) Chronic sinusitis, unspecified (09/29/24) Bilious vomiting (09/29/24) Nausea with vomiting, unspecified (09/29/24) Fever, unspecified (09/29/24) Headache, unspecified (09/29/24) Subjective Subjective Headache better. Denies meningismus. Objective Data Objective Data Vital Signs: Vital Signs Temp Pulse Resp BP Pulse Ox O2 Del Method 36.8 C 78 18 139/81 H 95 Room Air 09/30/24 03:08 09/30/24 03:08 09/30/24 03:08 09/30/24 03:08 09/30/24 03:08 09/30/24 03:13 Oxygen Delivery Method Room Air Weight: 107.1 kg Body Mass Index (BMI) 31.1 Intake & Output: Intake and Output for Last 24 Hours 09/28/24 09/29/24 09/30/24 23:59 23:59 23:59 Intake Total 3316 / 3316 1406 / 1406 Output Total 600 / 600 Balance 3316 / 3316 806 / 806 Lab / Micro Data 09/30/24 06:00 09/30/24 06:00 Labs: Laboratory Results - last 24 hr 09/29/24 13:58: WBC 8.5, RBC 4.53 L, Hgb 13.6, Hct 39.0 L, MCV 86.1, MCH 30.0, MCHC 34.9, RDW Std Deviation 37.1, RDW Coeff of Alonso 11.8, Plt Count 253, MPV 9.8, Immature Gran % (Auto) 0.400, Neut % (Auto) 73.7 H, Lymph % (Auto) 14.4 L, Swain % (Auto) 10.9 H, Eos % (Auto) 0.1, Baso % (Auto) 0.5, Absolute Neuts (auto) 6.2, Absolute Lymphs (auto) 1.22, Nucleated RBC % 0, PT 13.3, INR 1.0, APTT 27.3, Sodium 134, Potassium 3.9, Chloride 100, Carbon Dioxide 23.0, Anion Gap 11, BUN 9, Creatinine 1.01, Estim Creat Clear Calc 120.46, Est GFR (MDRD) Non-Af 95, BUN/Creatinine Ratio 8.8 L, Glucose 98, Lactic Acid < 1.0, Calcium 9.4, Magnesium 2.0, Total Bilirubin 0.67, Direct Bilirubin 0.24, AST 23, ALT 13, Alkaline Phosphatase 81, Total Protein 8.0, Albumin 4.0, Globulin 3.9, TSH 0.489 09/29/24 16:15: CSF Appearance CLEAR, CSF Color COLORLESS, CSF WBC 55 H, CSF RBC 73 H, CSF Cell Count Tube # 1, CSF Total Cell Counted 0.092, CSF Neutrophils 61 H, CSF Lymphocytes 37 L, CSF Monocytes 2 L, CSF Eosinophils 0, CSF Other Cells 0, CSF Comment May follow, CSF Glucose 55, CSF Total Protein 116.0 H 09/29/24 20:56: Urine Color Yellow, Urine Clarity Clear, Urine pH 6.0, Ur Specific [place] 1.020, Urine Protein 15 H, Urine Glucose (UA) Normal, Urine Ketones 150 A*, Urine Occult Blood Negative, Urine Nitrite Negative, Urine Bilirubin Negative, Urine Urobilinogen Normal, Ur Leukocyte Esterase Negative, Urine RBC 0 SEEN, Urine WBC 0-5 SEEN, Ur Squamous Epith Cells 0 SEEN, Urine Bacteria 1+, Urine Mucus 2+ 09/30/24 06:00: WBC 7.0, RBC 3.88 L, Hgb 11.9 L, Hct 33.7 L, MCV 86.9, MCH 30.7, MCHC 35.3, RDW Std Deviation 37.3, RDW Coeff of Alonso 11.8, Plt Count 212, MPV 10.9, Immature Gran % (Auto) 0.300, Neut % (Auto) 66.4, Lymph % (Auto) 21.1, M mary % (Auto) 11.4 H, Eos % (Auto) 0.4, Baso % (Auto) 0.4, Absolute Neuts (auto) 4.7, Absolute Lymphs (auto) 1.48, Nucleated RBC % 0 Micro: Microbiology 09/30/24 02:20 Mucosa - Nasopharyngeal Respiratory Panel (PCR) - Final 09/29/24 16:15 Csf, Spinal Fluid Gram Stain - Preliminary 09/29/24 13:58 Mucosa - Nose SARS-CoV-2, Influenza & RSV (PCR) - Final Radiography Diagnostic Testing: Radiology Impression Brain CT 09/29/24 13:41 IMPRESSION: 1. Chronic appearing paranasal sinus disease. 2. No significant intracranial pathology is evident. Reading Location: [place] [id number] Chest X-Ray 09/29/24 13:41 IMPRESSION: Lungs are hypoinflated, but are likely clear of acute disease. No evidence of pulmonary edema. No pleural effusion or pneumothorax is noted. The cardiomediastinal silhouette is within the normal range. No acute osseous process is seen. Reading Location: [place] [address] Physical Exam Const alert and no apparent distress HEENT head/scalp atraumatic and moist oral mucous membranes Neck Neck Narrative: no meningismus. Resp normal respiratory effort, no retractions, no use of accessory muscles and clear to auscultation bilaterally Cardio regular rate, regular rhythm, S1 normal heart sound and S2 normal heart sound GI normal to inspection, nondistended, normoactive bowel sounds, soft to palpation, non-tender and non-distended Extremity normal to inspection and full ROM Neuro Sensorium / Orientation: awake and alert Assessment & Plan Assessment/Plan (1) Meningitis: PLAN: Meningitis v encephalitis underwent LP on 09/30. Noted to have WBCs 55 with 61% neutrophils. High protein and normal glucose. Blood cultures pending, Gram stain pending. COVID-19, Influenza, RSV, respiratory panel pending. CSF cytology, enterovirus, HSV, VZV WNL pending ID dc'd antibiotics, but continuing acyclovir. ID consult PLAN: Plan VTE prophylaxis: LMWH. DW patient's at bedside. Charges/Coding Visit Charges Inpatient E&M: 47918 Subs Hosp L2
[2024-09-30 07:43] LABS: ALB/GLOB Ratio 1.1 RATIO (0.9-2.4); AST(SGOT) 14 U/L (<=37); Alanine Aminotransfer ALT/SGPT 11 U/L (<=46); Albumin, Serum 3.4 g/dL (3.5-5.0); Alkaline Phosphatase 67 U/L (40-129); Anion Gap 10 (5-15); BUN 8 mg/dL (4-19); BUN/Creat Ratio 10.3 RATIO (10-20); Calcium,Total 8.7 mg/dL (7.6-11.0); Carbon Dioxide 20.2 mmol/L (21.0-32.0); Chloride 104 mmol/L (98-108); EST Glomerular Filtration Rate 113 (>60); Estimated Creatinine Clearance 154.45 ml/min (50-250); Globulin 3.1 g/dL (2.2-4.2); Glucose 97 mg/dL (70-99); Phosphorus 2.9 mg/dL (2.7-4.5); Potassium 3.8 mmol/L (3.3-5.1); Protein, Total 6.5 g/dL (5.9-8.4); Sodium Level 134 mmol/L (133-145); Total Bilirubin 0.59 mg/dL (0.00-1.30)
[2024-09-30] MEDS: 0.9% Normal Saline (1000mL) 1,000 ML 150 ML IV (08:28)
[2024-09-30] MEDS: Lactobacillis Acidophilus 1 CAP PO ×4 (08:28→22:09)
[2024-09-30] MEDS: Enoxaparin 40 MG/0.4 ML Syringe SC (08:28)
[2024-09-30 09:51] VITALS: BP 98/64; PULSE 59; RESP 16; TEMP 36.5; O2SAT 97
[2024-09-30] MEDS: Ceftriaxone 2 GM in 0.9% Normal Saline (50mL MB+) 50 ML IV (10:16)
--- NOTE | 2024-09-30 10:35 | PCM.CONS.GEN ---
Assessment & Plan Assessment/Plan (1) Meningitis: PLAN: aseptic meningitis - csf wbc 55 with 61% neutrophils. PCRs pending, fluid cx neg so far. Low suspicion for bacterial infection. Will d/c vanc/ceftriaxone and remove isolation. Cont iv acyclovir. Feeling better. Will follow, thank you HPI Consult Data Date of Consult: 09/30/24 HPI Narrative Reason for Consultation: meningitis HPI Narrative: АНДРЕЙ THOMPSON, is a 44 M with minimal PMH, presented to ED 09/29 with 5 days progressive fatigue, headache, neck pain, photophobia, mild body aches, and n/v. No sick contacts. Was in [place] a few weeks ago. No new meds other than 3 doses of amox starting 2-3 days ago. Had tooth pulled last week, has healed without issue. No recent bug/tick bites. 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 Denies ivdu or new sex partners. Lives with and kids. Came to ED, LP done, admitted on vanc, ceftriaxone, and acyclovir. Feeling a little better. Full ROS performed and neg except as noted above. PFSH Home Medications ?Medication ?Instructions ?Recorded ?Last Taken ?Type amoxicillin 875 mg tablet 875 mg PO Q12.TCU atb 09/29/24 Unknown History ibuprofen 800 mg tablet 800 mg PO Q6H PRN PRN pain 09/29/24 Unknown History Allergy/AdvReac Type Severity Reaction Status Date / Time No Known Allergies Allergy Verified 09/29/24 11:20 Surgical History H/O tooth extraction Social History Smoking Status: Never smoker Physical Exam Const alert, oriented x3 and no apparent distress General Appearance: cooperative HEENT normocephalic and head/scalp atraumatic Eyes PERRL and EOMs intact bilaterally Neck supple and No nodes Neck Narrative: mild soreness Resp normal air movement and clear to auscultation bilaterally Cardio regular rate, regular rhythm and no murmurs GI soft to palpation, non-tender and non-distended Extremity General Extremity: Negative for edema Skin no rashes or lesions noted Neuro CN's II-XII intact bilaterally Lab / Micro Data Attestation: I reviewed the patient's lab results. 09/30/24 06:00 09/30/24 06:00 Labs: Laboratory Results - last 24 hr 09/29/24 13:58: WBC 8.5, RBC 4.53 L, Hgb 13.6, Hct 39.0 L, MCV 86.1, MCH 30.0, MCHC 34.9, RDW Std Deviation 37.1, RDW Coeff of Alonso 11.8, Plt Count 253, MPV 9.8, Immature Gran % (Auto) 0.400, Neut % (Auto) 73.7 H, Lymph % (Auto) 14.4 L, Page % (Auto) 10.9 H, Eos % (Auto) 0.1, Baso % (Auto) 0.5, Absolute Neuts (auto) 6.2, Absolute Lymphs (auto) 1.22, Nucleated RBC % 0, PT 13.3, INR 1.0, APTT 27.3, Sodium 134, Potassium 3.9, Chloride 100, Carbon Dioxide 23.0, Anion Gap 11, BUN 9, Creatinine 1.01, Estim Creat Clear Calc 120.46, Est GFR (MDRD) Non-Af 95, BUN/Creatinine Ratio 8.8 L, Glucose 98, Lactic Acid < 1.0, Calcium 9.4, Magnesium 2.0, Total Bilirubin 0.67, Direct Bilirubin 0.24, AST 23, ALT 13, Alkaline Phosphatase 81, Total Protein 8.0, Albumin 4.0, Globulin 3.9, TSH 0.489 09/29/24 16:15: CSF Appearance CLEAR, CSF Color COLORLESS, CSF WBC 55 H, CSF RBC 73 H, CSF Cell Count Tube # 1, CSF Total Cell Counted 0.092, CSF Neutrophils 61 H, CSF Lymphocytes 37 L, CSF Monocytes 2 L, CSF Eosinophils 0, CSF Other Cells 0, CSF Comment May follow, CSF Glucose 55, CSF Total Protein 116.0 H 09/29/24 20:56: Urine Color Yellow, Urine Clarity Clear, Urine pH 6.0, Ur Specific [place] 1.020, Urine Protein 15 H, Urine Glucose (UA) Normal, Urine Ketones 150 A*, Urine Occult Blood Negative, Urine Nitrite Negative, Urine Bilirubin Negative, Urine Urobilinogen Normal, Ur Leukocyte Esterase Negative, Urine RBC 0 SEEN, Urine WBC 0-5 SEEN, Ur Squamous Epith Cells 0 SEEN, Urine Bacteria 1+, Urine Mucus 2+ 09/30/24 06:00: WBC 7.0, RBC 3.88 L, Hgb 11.9 L, Hct 33.7 L, MCV 86.9, MCH 30.7, MCHC 35.3, RDW Std Deviation 37.3, RDW Coeff of Alonso 11.8, Plt Count 212, MPV 10.9, Immature Gran % (Auto) 0.300, Neut % (Auto) 66.4, Lymph % (Auto) 21.1, Page % (Auto) 11.4 H, Eos % (Auto) 0.4, Baso % (Auto) 0.4, Absolute Neuts (auto) 4.7, Absolute Lymphs (auto) 1.48, Nucleated RBC % 0, Sodium 134, Potassium 3.8, Chloride 104, Carbon Dioxide 20.2 L, Anion Gap 10, BUN 8, Creatinine 0.80, Estim Creat Clear Calc 154.45, Est GFR (MDRD) Non-Af 113, BUN/Creatinine Ratio 10.3, Glucose 97, Calcium 8.7, Phosphorus 2.9, Total Bilirubin 0.59, AST 14, ALT 11, Alkaline Phosphatase 67, Total Protein 6.5, Albumin 3.4 L, Globulin 3.1, Albumin/Globulin Ratio 1.1 Micro: Microbiology 09/30/24 02:20 Mucosa - Nasopharyngeal Respiratory Panel (PCR) - Final 09/29/24 16:15 Csf, Spinal Fluid Gram Stain - Preliminary 09/29/24 13:58 Mucosa - Nose SARS-CoV-2, Influenza & RSV (PCR) - Final Imaging Radiology Impression Brain CT 09/29/24 13:41 IMPRESSION: 1. Chronic appearing paranasal sinus disease. 2. No significant intracranial pathology is evident. Reading Location: [place] [address] Chest X-Ray 09/29/24 13:41 IMPRESSION: Lungs are hypoinflated, but are likely clear of acute disease. No evidence of pulmonary edema. No pleural effusion or pneumothorax is noted. The cardiomediastinal silhouette is within the normal range. No acute osseous process is seen. Reading Location: [place] [address]
[2024-09-30 11:25] VITALS: BP 123/82; PULSE 62; RESP 16; TEMP 36.6; O2SAT 100
--- NOTE | 2024-09-30 14:20 | CASEMGMT ---
Social Work Pt admitted with no health insurance. pt has been seen by Varsha at [facility] and does not qualify for Medicaid. ALESHA met with pt's (pt sleeping soundly). Pt states pt does have a health sharing plan [employer]. Pt with no concerns at this time. ALESHA did provide written information on prescription assistance, [employer], [employer] and [employer]. RUKHSANA Hernandez
--- NOTE | 2024-09-30 14:21 | CASEMGMT ---
KASSIE DEL CID Assessment: Face to Face with pt for initial transition planning/care coordination assessment. RN MARIA EUGENIA introduced self and role at [facility], pt voices understanding and consents to assessment. Pt is A&O x4 and answers all questions appropriately at this time. Pt resting in bed in no distress. Care providers, pharmacy, and demographics verified/updated. Strata: 1 Admitting Dx: Meningitis PCP: Farhat Garrett Specialists: None [facility] Insurance: SP Prescription Benefit: No LNOK: , Charline Living Arrangements: Pt lives with and three kids ADLs: Pt reports I at baseline Transportation: Pt drives self and denies concerns with transportation. DME: Denies HHC/SNF: Denies Hx of Pt states no concerns with going home at time of dc. Pt states no further concerns/needs. CM to follow. Advised pt to ask CM if any further question/concerns/needs arise, voices understanding. Pt Goal: Home Plan: Home with family support, follow for safe DC. Wale FERNANDO CM
[2024-09-30 15:36] VITALS: BP 129/79; PULSE 68; RESP 16; TEMP 36.5; O2SAT 99
--- NOTE | 2024-09-30 16:15 | CHAPLAIN ---
Type of Pastoral Visit _x__ Initial Visit ___ Follow-up Visit ___ On-call Visit ___ General Patient Visit ___ Spiritual Assessment ___ Family Conference ___ Bereavement ___ Rapid Response ___ Code Blue ___ Other (describe below) Pastoral Care Referral From _x__ Patient ___ Family ___ Nurse ___ Physician ___ Dry Placer Machine Operator ___ Car Distributor ___ Other (describe below) Sacrament/Intervention _x__ Active listening ___ Anointing ___ Catholic ___ Bereavement ___ Communion _x__ [place] exploration ___ ___ Life review _x__ Prayer ___ Reconciliation ___ Sacrament of Sick _x__ Supportive presence ___ Wedding ___ Other (describe below) Pastoral Comments patient is sitting up in bed but with look of pain and discomfort; pt admits that he is at hospital for first time, has new experience of pain, is foggy from the medications, and has many questions that are spiritual because of this illness; spouse is in the room as is a [id number]; pt attempts to make conversation about the spiritual concerns or questions that this brings up for him; lots of listening and reflection given for the patient; affirmation of his questions which are common at times like this; supportive presence and calm assurance of care for his situation; pt welcomes prayer and presence
[2024-09-30] MEDS: Ondansetron 4 MG/2 ML Vial IV (17:11)
[2024-09-30] MEDS: Ketorolac 15 MG/ML Vial IV (17:27)
[2024-09-30 21:30] VITALS: BP 129/83; PULSE 63; RESP 16; TEMP 36.7; O2SAT 95
[2024-10-01 04:31] VITALS: BP 137/78; PULSE 78; RESP 18; TEMP 36.8; O2SAT 98
[2024-10-01] MEDS: Acyclovir 800 MG in Dextrose 5%-Water (250mL Bag) 250 ML 266 MG IV (06:03)
[2024-10-01 07:08] LABS: Absolute Lymphocyte Count 1.25 X10^3/uL (0.83-4.51); Absolute Neutrophil Count 3.8 X10^3/uL (2.0-7.7); Basophil# 0.04 X10^3/uL; Basophil% 0.7 % (0-1); Eosinophil# 0.08 X10^3/uL; Eosinophils% 1.4 % (0-5); Hematocrit 33.9 % (40-54); Hemoglobin 11.9 g/dL (13.0-16.5); Lymphocyte # 1.25 X10^3/ul (0.83-4.51); Lymphocyte % 21.5 % (19-41); Mean Corp Hgb Conc 35.1 g/dL (32-36); Mean Corpuscular Hgb 30.5 pg (27.0-32.0); Mean Corpuscular Volume 86.9 fL (80-94); Mean Platelet Vol. 11.3 fl (6.2-12.0); Monocyte# 0.59 X10^3/uL; Monocyte% 10.1 % (0-10); NRBC Flagged by Analyzer 0 % (0-5); Neutrophil # 3.84 X10^3/uL (2.7-7.7); Platelet Count 207 K/mm3 (150-450); RBC Distribution Width CV 11.6 % (11.6-14.6); RBC Distribution Width SD 36.6 fl (35.1-43.9); White Blood Count 5.8 K/mm3 (4.4-11.0)
--- NOTE | 2024-10-01 07:19 | PCM.PN.HOSP ---
Reason for Visit Reason for Visit: Diagnoses Obesity, class 1 (09/29/24) Meningitis, unspecified (09/29/24) Chronic sinusitis, unspecified (09/29/24) Bilious vomiting (09/29/24) Nausea with vomiting, unspecified (09/29/24) Fever, unspecified (09/29/24) Headache, unspecified (09/29/24) Subjective Subjective Feeling better. Had some nausea with eating. Objective Data Objective Data Vital Signs: Vital Signs Temp Pulse Resp BP Pulse Ox O2 Del Method 36.8 C 78 18 137/78 H 98 Room Air 10/01/24 04:31 10/01/24 04:31 10/01/24 04:31 10/01/24 04:31 10/01/24 04:31 10/01/24 04:31 Oxygen Delivery Method Room Air Weight: 107.1 kg Body Mass Index (BMI) 31.1 Intake & Output: Intake and Output for Last 24 Hours 09/29/24 09/30/24 10/01/24 23:59 23:59 23:59 Intake Total 3316 / 3316 4613 / 4613 240 / 240 Output Total 800 / 800 Balance 3316 / 3316 3813 / 3813 240 / 240 Lab / Micro Data 10/01/24 05:15 10/01/24 05:15 Labs: Laboratory Results - last 24 hr 09/30/24 06:00: Sodium 134, Potassium 3.8, Chloride 104, Carbon Dioxide 20.2 L, Anion Gap 10, BUN 8, Creatinine 0.80, Estim Creat Clear Calc 154.45, Est GFR (MDRD) Non-Af 113, BUN/Creatinine Ratio 10.3, Glucose 97, Calcium 8.7, Phosphorus 2.9, Total Bilirubin 0.59, AST 14, ALT 11, Alkaline Phosphatase 67, Total Protein 6.5, Albumin 3.4 L, Globulin 3.1, Albumin/Globulin Ratio 1.1 10/01/24 05:15: WBC 5.8, RBC 3.90 L, Hgb 11.9 L, Hct 33.9 L, MCV 86.9, MCH 30.5, MCHC 35.1, RDW Std Deviation 36.6, RDW Coeff of Alonso 11.6, Plt Count 207, MPV 11.3, Immature Gran % (Auto) 0.300, Neut % (Auto) 66.0, Lymph % (Auto) 21.5, [place] % (Auto) 10.1 H, Eos % (Auto) 1.4, Baso % (Auto) 0.7, Absolute Neuts (auto) 3.8, Absolute Lymphs (auto) 1.25, Nucleated RBC % 0 Micro: Microbiology 09/29/24 16:15 Csf, Spinal Fluid Gram Stain - Final 09/29/24 16:15 Csf, Spinal Fluid CSF Culture - Preliminary No growth in 24 hours. Final to follow. 09/30/24 02:20 Mucosa - Nasopharyngeal Respiratory Panel (PCR) - Final 09/29/24 13:58 Mucosa - Nose SARS-CoV-2, Influenza & RSV (PCR) - Final Physical Exam Const alert and no apparent distress HEENT head/scalp atraumatic and moist oral mucous membranes Neck Neck Narrative: no meningismus Neuro Sensorium / Orientation: awake and alert Psych affect normal Assessment & Plan Assessment/Plan (1) Meningitis: PLAN: Meningitis v encephalitis underwent LP on 09/30. Noted to have WBCs 55 with 61% neutrophils. High protein and normal glucose. Blood cultures pending, Gram stain pending. COVID-19, Influenza, RSV, respiratory panel pending. CSF cytology, enterovirus, HSV, VZV WNL pending ID dc'd antibiotics, but continuing acyclovir. ID consult PLAN: Plan VTE prophylaxis: LMWH. DW patient's at bedside. Charges/Coding Visit Charges Inpatient E&M: 49193 Subs Hosp L2
[2024-10-01 07:44] LABS: Anion Gap 10 (5-15); BUN 6 mg/dL (4-19); BUN/Creat Ratio 7.4 RATIO (10-20); Calcium,Total 9.1 mg/dL (7.6-11.0); Carbon Dioxide 24.1 mmol/L (21.0-32.0); Chloride 103 mmol/L (98-108); Creatinine, Serum 0.86 mg/dL (0.70-1.20); EST Glomerular Filtration Rate 111 (>60); Estimated Creatinine Clearance 143.68 ml/min (50-250); Glucose 91 mg/dL (70-99); Phosphorus 2.3 mg/dL (2.7-4.5); Potassium 3.4 mmol/L (3.3-5.1); Sodium Level 137 mmol/L (133-145)
[2024-10-01 09:03] VITALS: BP 149/77; PULSE 83; RESP 18; TEMP 36.6; O2SAT 97
[2024-10-01] MEDS: Lactobacillis Acidophilus 1 CAP PO (09:10)
--- NOTE | 2024-10-01 13:24 | PCM.PN.ID ---
Physical Exam Narrative Feeling better, headache improved, no fever Const alert and no apparent distress General Appearance: cooperative Neck supple Resp normal air movement and clear to auscultation bilaterally Cardio regular rate and regular rhythm GI soft to palpation, non-tender and non-distended Skin no rashes or lesions noted ID ID: Route of nutrition/ use of supplements: [] Nutritional Intake: [] IV Site: [] Perez Catheter: [] Assessment & Plan Assessment/Plan (1) Meningitis: PLAN: aseptic meningitis - csf wbc 55 with 61% neutrophils. PCRs pending, fluid cx neg so far. Low suspicion for bacterial infection. On iv acyclovir. Feeling better. Ok for home with 8 days po valtrex, wrote rx, d/w Dr. Varela Will follow prn
--- NOTE | 2024-10-01 13:50 | DS.PCM_ITS ---
Providers Date of Admission: 09/29/24 Primary Care Physician: [facility] Consultations 09/29/24 20:47 Consult: Infectious Disease Routine Consulting Provider: Say Nuno Reason for Consult: Meningitis EMERGENT Consult: No MD Notified: Yes Date Notified: 09/29/24 Time Notified: 20:17 Method of Notification: ED Physician Initiated Reason For Visit: MENINGITIS Diagnosis Discharge Diagnosis (1) Meningitis: Status: Acute Code(s): G03.9 - Meningitis, unspecified Plan: Meningitis v encephalitis underwent LP on 09/30. Noted to have WBCs 55 with 61% neutrophils. High protein and normal glucose. Blood cultures pending, Gram stain pending. COVID-19, Influenza, RSV, respiratory panel pending. CSF cytology, enterovirus, HSV, VZV WNL pending ID dc'd antibiotics, but continuing acyclovir. ID recommends 9 more days of valtrex 1mg TID. Plan VTE prophylaxis: LMWH. Medications at Discharge Home Medications ibuprofen 800 mg tablet 800 mg PO Q6H PRN PRN pain 09/29/24 valacyclovir 1 gram tablet (Valtrex) 1,000 mg PO TID 8 days #24 tabs 10/01/24 Hospital Course Operations None Procedures - (lumbar puncture) Summary of Care Provided Minutes Spent on Discharge: 32 Hospital Course: Patient presents with headache and a fever. He underwent a lumbar puncture that was more consistent with aseptic meningitis. Patient was on acyclovir temporarily on broad-spectrum antibiotics. Patient is overall doing well. Patient will be discharged home to continue with a course of valacyclovir. Weight / BMI Weight Weight: 107.1 kg Body Mass Index (BMI) 31.1 ABG / Lab / Microbiology Data 10/01/24 05:15 10/01/24 05:15 Laboratory: Laboratory Results - last 24 hr 09/29/24 16:15: Miscellaneous Cytology SEE PATHOLOGY REPORT 10/01/24 05:15: WBC 5.8, RBC 3.90 L, Hgb 11.9 L, Hct 33.9 L, MCV 86.9, MCH 30.5, MCHC 35.1, RDW Std Deviation 36.6, RDW Coeff of Alonso 11.6, Plt Count 207, MPV 11.3, Immature Gran % (Auto) 0.300, Neut % (Auto) 66.0, Lymph % (Auto) 21.5, M mary % (Auto) 10.1 H, Eos % (Auto) 1.4, Baso % (Auto) 0.7, Absolute Neuts (auto) 3.8, Absolute Lymphs (auto) 1.25, Nucleated RBC % 0, Sodium 137, Potassium 3.4, Chloride 103, Carbon Dioxide 24.1, Anion Gap 10, BUN 6, Creatinine 0.86, Estim Creat Clear Calc 143.68, Est GFR (MDRD) Non-Af 111, BUN/Creatinine Ratio 7.4 L, Glucose 91, Calcium 9.1, Phosphorus 2.3 L Microbiology: Microbiology 09/29/24 13:40 Blood Culture (Wb) - Anticubital Left Blood Culture - Preliminary No growth in 48 hours. 09/29/24 13:58 Blood Culture (Wb) - Anticubital Right Blood Culture - Preliminary No growth in 48 hours. 09/29/24 16:15 Csf, Spinal Fluid Gram Stain - Final 09/29/24 16:15 Csf, Spinal Fluid CSF Culture - Preliminary No growth in 24 hours. Final to follow. 09/30/24 02:20 Mucosa - Nasopharyngeal Respiratory Panel (PCR) - Final 09/29/24 13:58 Mucosa - Nose SARS-CoV-2, Influenza & RSV (PCR) - Final D/C Instructions Discharge Diet: No restrictions DC O2, CPAP, BIPAP Needs Home O2 Discharge instructions: No Meaningful Use Info Meaningful Use Meaningful Use Diagnoses (Choose all that apply): None applicable Ischemic Stroke Statin Dosing Therapy Reference: STATIN DOSE THERAPY REFERENCE: * Patients > 75 years receive moderate or high dose statin therapy. * Patients 75 years or YOUNGER should receive HIGH intensity statin dose unless contraindicated. You will be required to document reason for non-treatment if statin daily dose does not meet guidelines. HIGH DOSE STATIN THERAPY DAILY Atorvastatin > than or = to 40 mg Rosuvastatin > than or = to 20 mg Amlodipine + Atorvastatin > than or = to 2.5/40 mg Ezetimibe + Simvastatin 10/80 mg Simvastatin 80mg Discharge Plan Admission Admit Date/Time: 09/29/24 20:13 Primary Reason for Your Visit: Encephalitis Attending Provider: Bib Varela Primary Care Provider: Care Physician,No Primary Consulting Providers: Say Nuno; Sai Perry Discharge Orders/Prescriptions Prescriptions: New valacyclovir [Valtrex] 1 gram tablet 1,000 mg PO TID 8 Days Qty: 24 0RF Continued ibuprofen 800 mg tablet 800 mg PO Q6H PRN PRN (Reason: pain) Discontinued amoxicillin 875 mg tablet 875 mg PO Q12.TCU Referrals / Follow Up: Care Physician,No Primary [Primary Care Provider] - Disposition Disposition (needs filled in before D/C Order can be placed): Home, Self Care Charges/Coding Visit Charges Inpatient E&M: 44222 Disch Hosp >30min
--- NOTE | 2024-10-01 14:28 | PHA.DC_ITS ---
Pharmacy [facility] has performed discharge medication reconciliation and counseling for this patient. The patient's discharge medication list was reviewed for discrepancies and discrepancies were resolved. The patient was counseled on the following discharge medications and changes in medications for homegoing were reviewed. The Reason for Use, instructions for use, and potential side effects were reviewed for all new medications. The patient's questions regarding all of their medications were answered. 1. Valacyclovir 1000 mg PO TID x 8 days The patient was able to verbally demonstrate an understanding of their discharge medications. Medications at Discharge Home Medications ibuprofen 800 mg tablet 800 mg PO Q6H PRN PRN pain 09/29/24 valacyclovir 1 gram tablet (Valtrex) 1,000 mg PO TID 8 days #24 tabs 10/01/24
--- NOTE | 2024-10-01 14:40 | CASEMGMT ---
TC to [facility] to check cost of valcyclovir, pharmacist states the med has not been ran yet. RN CM into pt room, pt sitting up in chair. Pt is aware that should the med not be affordable to him when he picks it up, he may use [facility] with the cost ranging from $49-54. Pt states that she is familiar with [facility]. Pt denies any homegoing needs at this time.
[2024-10-01 14:58] VITALS: BP 145/82; PULSE 76; RESP 18; TEMP 36.6; O2SAT 99
== END 2024-10-01 15:43 | disposition home or self-care (01) | DRG 99 ==
LOC: ED 19:37 → MS3 20:32
PROVIDERS: Admitting Provider Internal Medicine; Emergency Provider Emergency Medicine
DX: G03.0 Nonpyogenic meningitis (principal); E66.9 Obesity, unspecified; J32.9 Chronic sinusitis, unspecified; R11.14 Bilious vomiting; Z68.30 Body mass index [BMI] 30.0-30.9, adult; Z98.818 Other dental procedure status
CPT/HCPCS: 36415; 62270; 70450; 71045; 80048; 80053; 80076; 81001; 82945; 83605; 83735; 84100; 84157; 84443; 85025; 85610; 85730; 87040; 87070; 87205; 87498; 87529; 87631; 87633; 87798; 88108; 88313; 89050; 89051; 94668; 99285; A4216; J0696; J2405